=== PATIENT | female | born 1970 | race Caucasian/White ===

== ENCOUNTER → 2016-11-15 | Outpatient (CLI) | payer SELFPAY ==
[~2016-11-15] MED LIST: LISINOPRIL10 MG PO
--- NOTE | ~2016-11-15 | CR63 ---
[facility] A Service of [facility] & [facility] RADIOLOGY TEXT RESULTS PATIENT: IVY GARIBAY LOCATION: [facility] : [birth year] UNIT #: [id number] AGE: [address]: Kalpesh Ding III, MD SEX: F ORDER DR: [id number] [facility] [address] [place], [place] [address] [id number] O MR#: [id number] Acc #: [id number] NAME: IVY GARIBAY : 1970 SEX: F STUDY DATE/TIME: 11/15/2016 7:31 UNIT: [facility] ROOM: STUDY DESCRIPTION: CR Chest 2 View Attending Physician: Kalpesh Ding III, M.D. Referring Physician: Kalpesh Ding III, M.D. Ordering Physician: Kalpesh Ding III, M.D. Primary Care Physician: Generic Doctor Not In System MEDICAL IMAGING REPORT This report is preliminary unless electronic signature is present EXAM 2-view chest 11/15/2016 HISTORY 46-year-old female for preoperative respiratory clearance prior to gastric Lap-Band surgery and possible paraesophageal hernia repair. Morbid obesity. Essential hypertension. COMPARISON None FINDINGS 2 views of the chest demonstrate clear lungs. No pleural effusion or pneumothorax. Heart size and mediastinum are normal. Pulmonary vasculature normal. IMPRESSION No acute cardiopulmonary findings. Dictated by... Massimo Holly M.D. THIS IS AN ELECTRONICALLY VERIFIED REPORT Massimo Holly M.D. at 11/15/2016 6:38 PM Juancarlos TD: 11/15/2016 11:02 JOB #: [id number] MEDICAL IMAGING REPORT Page 1 of 1 COPY
--- NOTE | ~2016-11-15 | CR97 ---
[facility] A Service of [facility] RADIOLOGY TEXT RESULTS PATIENT: IVY GARIBAY LOCATION: [facility] : [birth year] UNIT #: [id number] AGE: [address]: Kalpesh Ding III, MD SEX: F ORDER DR: [id number] [place], [place] [address] [id number] O MR#: [id number] [facility] #: [id number] NAME: IYV GARIBAY : 1970 SEX: F STUDY DATE/TIME: 11/15/2016 8:20 UNIT: [facility] ROOM: STUDY DESCRIPTION: CR Esophagram Attending Physician: Kalpesh Ding III, M.D. Referring Physician: Kalpesh Ding III, M.D. Ordering Physician: Kalpesh Ding III, M.D. Primary Care Physician: Generic Doctor Not In System MEDICAL IMAGING REPORT This report is preliminary unless electronic signature is present EXAM Single contrast barium esophagram INDICATION Preoperative examination prior to laparoscopic gastric band. Patient has a history of morbid obesity as well as seasonal allergies causing cough. TECHNIQUE Patient was administered thin barium and multiple fluoroscopic images were obtained. FINDINGS No stricture or mass lesion of the thoracic esophagus is identified. No hiatal hernia was seen. Patient did require some secondary contractions for full stripping of the esophagus. Spontaneous reflux into the mid thoracic esophagus was identified. IMPRESSION 1. Spontaneous reflux into the mid thoracic esophagus. 2. No hiatal hernia is seen. Patient did require some secondary contractions for full stripping of the esophagus. Total fluoroscopy time was 0.5 minutes. A total of 14 fluoroscopic images were obtained. Dictated by... Eleanor Garcia M.D. THIS IS AN ELECTRONICALLY VERIFIED REPORT Eleanor Garcia M.D. at 11/18/2016 8:16 AM OMKAR/lucie TD: 11/17/2016 08:38 JOB #: [id number] [facility] A Service of [facility] RADIOLOGY TEXT RESULTS PATIENT: IVY GARIBAY LOCATION: [facility] #: [id number] : [birth year] UNIT #: [id number] AGE: [address]: Kalpesh Ding III, MD SEX: F ORDER DR: MEDICAL IMAGING REPORT Page 1 of 1 COPY
--- NOTE | ~2016-11-15 | EKG ---
PATIENT: IVY GARIBAY UNIT #: [id number] Ventricular Rate: 66 BPM Atrial Rate: 66 BPM P-R Interval: 166 ms QRS Duration: 74 ms Q-T Interval: 420 ms QTC Calculation(Bezet): 440 ms P [place]: 38 degrees Calculated R [place]: 13 degrees Calculated T [place]: 18 degrees Diagnosis Line: Normal sinus rhythm with sinus arrhythmia Diagnosis Line: Cannot rule out Anterior infarct , age Diagnosis Line: undetermined Diagnosis Line: Abnormal ECG Diagnosis Line: No previous ECGs available Diagnosis Line: Confirmed by GAGE GAN MD ([id number]) on Diagnosis Line: 11/15/2016 4:38:34 PM INTERPRETING MD: ELVIA SUÁREZ
[2016-11-15 09:47] LABS: HEMATOCRIT 44.8 % (35.0-45.0); HEMOGLOBIN 14.4 gm/dL (12.0-16.0); MEAN CELL VOLUME 90.8 FL (83-96); MEAN CORPUSCULAR HEMOGLOBIN 29.2 PG (28-34); MEAN CORPUSCULAR HGB CONC 32.2 g/dL (30-36); MEAN PLATELET VOLUME 8.6 FL (6.5-11.5); RED BLOOD COUNT 4.93 X10e (3.90-5.30); RED CELL DISTRIBUTION WIDTH 13.7 % (11.0-15.5); WHITE BLOOD COUNT 8.5 X10e3 (4.0-10.5)
[2016-11-15 10:39] LABS: ALBUMIN SERUM 4.3 g/dL (3.5-5.0); BILIRUBIN,TOTAL 0.7 mg/dL (0.2-2.0); BUN/CREATININE RATIO 12.85; CALCIUM SERUM 9.3 mg/dL (8.4-10.2); CREATININE SERUM 0.7 mg/dL (0.6-1.4); GLOM FILT RATE Estimated 102.5 mL/min (>60); POTASSIUM 4.1 mmol/L (3.5-5.1); PROTEIN TOTAL SERUM 7.5 g/dL (6.0-8.3)
== END | disposition home or self-care (01) ==
LOC: CRAD 07:02
PROVIDERS: Surgery
DX: Z01.818 Encounter for other preprocedural examination (principal); E66.01 Morbid (severe) obesity due to excess calories; K21.9 Gastro-esophageal reflux disease without esophagitis
CPT/HCPCS: 36415; 71020; 74220; 80053; 80061; 84443; 85027; 93005

== ENCOUNTER → 2016-11-30 | Day surgery (SDC) | payer SELFPAY ==
--- NOTE | ~2016-11-30 | CR7 ---
[facility] A Service of [facility] & [facility] RADIOLOGY TEXT RESULTS PATIENT: IVY GARIBAY LOCATION: [facility] : 66 UNIT #: [id number] AGE: [address]: Kalpesh Ding III, MD SEX: F ORDER DR: [id number] [facility] [address]. [place], [place] [address] [id number] O MR#: [id number] Acc #: [id number] NAME: IVY GARIBAY : 1970 SEX: F STUDY DATE/TIME: 11/30/2016 10:02 UNIT: [facility] ROOM: STUDY DESCRIPTION: CR Abdomen Single AP View Attending Physician: Kalpesh Ding III, M.D. Ordering Physician: Kalpesh Ding III, M.D. Primary Care Physician: Astrid Not Listed MEDICAL IMAGING REPORT This report is preliminary unless electronic signature is present EXAM KUB HISTORY Postop Lap-Band surgery. TECHNIQUE Single view of the abdomen was obtained. FINDINGS Postoperative changes of Lap-Band surgery are noted. The angle of the band with respect to the long axis of the spine is 50 degrees. No postoperative complications noted. The bowel gas pattern is normal. STAT * RESULT Dictated by... Prakash Da Silva M.D. THIS IS AN ELECTRONICALLY VERIFIED REPORT Prakash Da Sivla M.D. at 11/30/2016 6:20 PM CECILIO/elva TD: 11/30/2016 10:28 JOB #: [id number] MEDICAL IMAGING REPORT Page 1 of 1 COPY
--- NOTE | ~2016-11-30 | OR ---
Unit #: [id number] #: [id number] Patient: IVY GARIBAY [id number] [facility] [address] [place], [place] [address] [id number] O MR#: [id number] NAME: IVY GARIBAY ROOM: Date of Procedure: 11/30/2016 Admission Date: 11/30/2016 Surgeon: Kalpesh Ding III, M.D. : 1970 Attending Physician: Kalpesh Ding III, M.D. Primary Care Physician: Generic Doctor Not In System OPERATIVE REPORT PREOPERATIVE DIAGNOSIS Chronic morbid obesity. POSTOPERATIVE DIAGNOSIS Chronic morbid obesity. SECONDARY DIAGNOSIS Anterior paraesophageal hernia. PROCEDURE PERFORMED Laparoscopic adjustable gastric banding (AP standard with regular port and laparoscopic paraesophageal hernia repair). PITCH WORKER Dr. Gee Russell. SPECIMENS None. COMPLICATIONS None apparent. ESTIMATED BLOOD LOSS Minimal. INDICATIONS FOR PROCEDURE This is a 46-year-old lady, who has chronic morbid obesity with a BMI of 50. She has been through the bariatric program at [facility], and understands the risks and benefits of the procedure. DESCRIPTION OF PROCEDURE After consent was obtained, including the risks and benefits of slippage, erosion, port dysfunction, and possible failure of weight loss due to noncompliance, the patient was taken to the operating room and placed in the supine position. General anesthetic was administered and the abdomen was prepped and draped in standard surgical fashion. I began by making a 2 cm incision just above and to the left of the umbilicus. I used a Visiport to enter the peritoneal cavity without any difficulty. C02 pneumoperitoneum was then established. Next, I placed a 5 mm port in the right upper quadrant, a 5 mm Sepideh liver retractor in Unit #: [id number] #: [id number] Patient: IVY GARIBAY the subxiphoid region to provide exposure of the gastroesophageal junction. Next, a 10 mm port was placed in the left upper quadrant and a 5 mm port was placed in the left lateral subcostal region. I began by performing an examination of the GE junction to evaluate for a hiatal hernia. We then scored the peritoneal attachments overlying the angle of His. I then opened up the clear space in the gastrohepatic ligament, and then using 2 blunt graspers, I identified the small fat pad crossing over the right crura. I swept the fat anterior to the crura off the crura and using the pars flaccida, I created a retrogastric tunnel where the blunt grasper exited at the angle of His. Once I had made this tunnel safely, I then inserted an Allergan AP band into the abdominal cavity. This adjustable gastric band was then place around the upper part of the stomach and fastened and buckled anteriorly. We then tacked the lateral fundus over the band to the proximal pouch with 2 interrupted 0 Ethibond sutures. I then used a third stitch to imbricate the excess anterior stomach by going from the lesser curvature up towards where the last stitch was placed. We then had excellent hemostasis. I removed the Sepideh liver retractor. We then removed the port tubing through the initial port incision. The rest of the ports were removed, and the pneumoperitoneum was released. I then left a small tail on the tubing. We then attached the port to the excess band tubing. We placed a piece of Prolene mesh along the back side of the port and used a Prolene stitch to anchor this mesh in place. We then trimmed the excess mesh so that just a small footprint of mesh was in place behind the port. I then inserted the tubing back into the abdominal cavity, and we placed the port into a small pocket that was made just inferior to where our initial port incision was made. The mesh was in direct contact with the fascia, and this will scar in place to hold the port in place. We then injected all the port sites with 0.25% plain Marcaine, and I reapproximated the skin edges with interrupted 4-0 Vicryl subcuticular sutures. Steri-strips were then applied. The patient tolerated the procedure without any problems and returned to the recovery room in stable condition. ADDENDUM After exposure of the GE junction, the patient was noted to have a small to medium-sized anterior paraesophageal hernia. I scored the phrenoesophageal ligament and reduced the hernia defect including the hernia sac, which was excised. I then after identifying both the right and left crura, I reapproximated the defect with an interrupted 0 Ethibond frxmat-up-wyace suture. I then proceeded with the case as listed above. Dictated by... Kalpesh Ding III, M.D. VCL/natasha TD: 11/30/2016 21:54 JOB #: [id number] Unit #: [id number] #: [id number] Patient: IVY GARIBAY OPERATIVE REPORT Page 1 of 1 X Kalpesh Ding III, MD X PROCEDURE OPERATIVE NOTE
== END | disposition home or self-care (01) ==
LOC: CSUR 06:13
DX: E66.01 Morbid (severe) obesity due to excess calories (principal); K44.9 Diaphragmatic hernia without obstruction or gangrene; I10 Essential (primary) hypertension; Z68.43 Body mass index [BMI] 50.0-59.9, adult; Z88.1 Allergy status to other antibiotic agents; Z88.5 Allergy status to narcotic agent; Z88.8 Allergy status to other drugs, medicaments and biological substances; Z90.49 Acquired absence of other specified parts of digestive tract; Z90.89 Acquired absence of other organs
CPT/HCPCS: 74000; 84703; C1781; J0330; J0690; J1100; J1650; J1885; J2250; J2405; J2710; J3010